=== PATIENT | female | born 1950 | race Asian ===

== ENCOUNTER 2020-07-10 10:53 | Emergency (ER) | payer OTHER, MEDICARE ==
[~2020-07-10] VITALS: Ht 157.5 cm; Wt 68.2 kg
[~2020-07-10 10:53] MED LIST: HYDR25TA PO; LISI-618 PO; METF-444 PO; OMEP40CA PO; SIMV-46 PO; VICOT PO
[2020-07-10] MEDS ORDERED: ASPI-728 PO (11:12)
[2020-07-10] MEDS ORDERED: LOSA-30 PO (11:12)
[2020-07-10] MEDS ORDERED: BACLOFEN 10 MG TABLET PO ONE (12:00)
[2020-07-10] MEDS ORDERED: ACETAMINOPHEN 500 MG TABLET PO ONE (12:00)
[2020-07-10] MEDS: KETOROLAC TROMETHAMINE 60 MG/2 ML VIAL IM ONE ×2 (12:02→12:08)
[2020-07-10 13:25] VITALS: BP 119/69
[2020-07-10 18:57] LABS: GLUCOSE,POINT OF CARE 107 MG/DL (70-110)
== END 2020-07-10 14:15 | disposition home or self-care (01) ==
LOC: EMS 10:55
DX: S13.4XXA Sprain of ligaments of cervical spine, initial encounter (principal); S20.222A Contusion of left back wall of thorax, initial encounter; E11.9 Type 2 diabetes mellitus without complications; K21.9 Gastro-esophageal reflux disease without esophagitis; E78.00 Pure hypercholesterolemia, unspecified; I10 Essential (primary) hypertension; Z79.84 Long term (current) use of oral hypoglycemic drugs; Z79.899 Other long term (current) drug therapy; V49.9XXA Car occupant (driver) (passenger) injured in unspecified traffic accident, initial encounter; Y93.89 Activity, other specified; Y92.89 Other specified places as the place of occurrence of the external cause; Y99.8 Other external cause status
CPT/HCPCS: 72040; 72070; 82962; 99284; J1885